=== PATIENT | female | born 1975 ===

== ENCOUNTER 2021-12-24 12:38 | Outpatient (NON) | payer OTHER, SELFPAY ==
[2021-12-24 13:01] LABS: Basophils Absolute Auto 0.03 K/mm3 (0.00-0.10); Basophils Percent Auto 0.5 % (0.0-1.0); Eosinophils Absolute Auto 0.12 K/mm3 (0.02-0.50); Eosinophils Percent Auto 1.8 % (1.0-6.0); Hematocrit 37.9 % (35.0-49.0); Hemoglobin 13.2 g/dL (12.0-15.0); Immature Granulocyte Absolute 0.02 K/mm3 (0.00-0.00); Immature Granulocyte Percent A 0.3 % (0.0-0.0); Lymphocytes Absolute Auto 2.05 K/mm3 (1.10-4.50); Lymphocytes Percent Auto 30.9 % (18.0-42.0); Mean Corpuscular HGB Conc 34.8 g/dL (32.0-36.0); Mean Corpuscular Hemoglobin 32.4 pg (27.0-31.0); Mean Corpuscular Volume 92.9 fL (78.0-102.0); Mean Platelet Volume 11.5 fl (9.2-11.8); Monocytes Absolute Auto 0.53 K/mm3 (0.10-0.90); Neutrophils Absolute Auto 3.9 K/mm3 (1.7-7.2); Neutrophils Percent Auto 58.5 % (50.0-70.0); Platelet Count Result 175 K/mm3 (150-420); Red Blood Count 4.08 M/mm3 (4.20-5.40); Red Cell Distribution Width 12.5 % (11.6-14.4); White Blood Count 6.6 K/mm3 (4.8-10.8)
[2021-12-24 13:13] LABS: Anion Gap 9 mmol/L (8-16); Blood Urea Nitrogen 5 mg/dL (7-18); Calcium 8.5 mg/dL (8.5-10.1); Carbon Dioxide 28 mmol/L (21-32); Chloride 96 mmol/L (98-108); Estimated Glomerular Filt Rate > 60; Glucose 92 mg/dL (70-99); Osmolality Calculated 273 mOsm/kg (285-295); Potassium 3.4 mmol/L (3.5-5.1); Sodium 133 mmol/L (136-145)
[2021-12-24 14:01] LABS: Erythrocyte Sedimentation Rate 13 mm/hr (0-15)
== END 2021-12-24 12:39 | disposition home or self-care (01) ==
LOC: CHSLAB 12:46
PROVIDERS: Visit Provider Internal Medicine
DX: L03.031 Cellulitis of right toe (principal); Z79.2 Long term (current) use of antibiotics
CPT/HCPCS: 80048; 85025; 85652

== ENCOUNTER 2021-12-28 10:58 | Outpatient (NON) | payer OTHER, SELFPAY ==
[2021-12-28 11:55] LABS: Basophils Absolute Auto 0.03 K/mm3 (0.00-0.10); Basophils Percent Auto 0.5 % (0.0-1.0); Eosinophils Percent Auto 1.7 % (1.0-6.0); Hemoglobin 11.9 g/dL (12.0-15.0); Immature Granulocyte Absolute 0.01 K/mm3 (0.00-0.00); Immature Granulocyte Percent A 0.2 % (0.0-0.0); Lymphocytes Absolute Auto 2.26 K/mm3 (1.10-4.50); Lymphocytes Percent Auto 38.1 % (18.0-42.0); Mean Corpuscular HGB Conc 33.1 g/dL (32.0-36.0); Mean Corpuscular Hemoglobin 31.3 pg (27.0-31.0); Mean Corpuscular Volume 94.7 fL (78.0-102.0); Mean Platelet Volume 11.4 fl (9.2-11.8); Monocytes Absolute Auto 0.42 K/mm3 (0.10-0.90); Monocytes Percent Auto 7.1 % (2.0-11.0); Neutrophils Absolute Auto 3.1 K/mm3 (1.7-7.2); Neutrophils Percent Auto 52.4 % (50.0-70.0); Platelet Count Result 187 K/mm3 (150-420); Red Cell Distribution Width 12.6 % (11.6-14.4); White Blood Count 5.9 K/mm3 (4.8-10.8)
[2021-12-28 12:02] LABS: Anion Gap 9 mmol/L (8-16); Blood Urea Nitrogen 3 mg/dL (7-18); Calcium 8.2 mg/dL (8.5-10.1); Carbon Dioxide 28 mmol/L (21-32); Chloride 104 mmol/L (98-108); Estimated Glomerular Filt Rate > 60; Glucose 92 mg/dL (70-99); Osmolality Calculated 288 mOsm/kg (285-295); Potassium 3.8 mmol/L (3.5-5.1); Sodium 141 mmol/L (136-145)
[2021-12-28 12:58] LABS: Erythrocyte Sedimentation Rate 18 mm/hr (0-15)
== END 2021-12-28 10:59 | disposition home or self-care (01) ==
LOC: CHSLAB 11:01
PROVIDERS: Visit Provider Internal Medicine Infectious Disease
DX: L03.031 Cellulitis of right toe (principal); M86.9 Osteomyelitis, unspecified; Z79.2 Long term (current) use of antibiotics
CPT/HCPCS: 80048; 85025; 85652

== ENCOUNTER 2022-01-04 14:02 | Outpatient (NON) | payer OTHER, SELFPAY ==
[2022-01-04 14:18] LABS: Basophils Absolute Auto 0.03 K/mm3 (0.00-0.10); Basophils Percent Auto 0.5 % (0.0-1.0); Eosinophils Absolute Auto 0.19 K/mm3 (0.02-0.50); Hematocrit 37.5 % (35.0-49.0); Hemoglobin 12.3 g/dL (12.0-15.0); Immature Granulocyte Absolute 0.01 K/mm3 (0.00-0.00); Immature Granulocyte Percent A 0.2 % (0.0-0.0); Lymphocytes Absolute Auto 2.09 K/mm3 (1.10-4.50); Lymphocytes Percent Auto 33.5 % (18.0-42.0); Mean Corpuscular HGB Conc 32.8 g/dL (32.0-36.0); Mean Corpuscular Hemoglobin 31.1 pg (27.0-31.0); Mean Corpuscular Volume 94.7 fL (78.0-102.0); Mean Platelet Volume 10.8 fl (9.2-11.8); Monocytes Absolute Auto 0.41 K/mm3 (0.10-0.90); Monocytes Percent Auto 6.6 % (2.0-11.0); Neutrophils Absolute Auto 3.5 K/mm3 (1.7-7.2); Neutrophils Percent Auto 56.2 % (50.0-70.0); Platelet Count Result 219 K/mm3 (150-420); Red Blood Count 3.96 M/mm3 (4.20-5.40); Red Cell Distribution Width 12.3 % (11.6-14.4); White Blood Count 6.2 K/mm3 (4.8-10.8)
[2022-01-04 14:30] LABS: Anion Gap 9 mmol/L (8-16); Blood Urea Nitrogen 3 mg/dL (7-18); Calcium 8.4 mg/dL (8.5-10.1); Carbon Dioxide 28 mmol/L (21-32); Chloride 102 mmol/L (98-108); Estimated Glomerular Filt Rate > 60; Glucose 138 mg/dL (70-99); Osmolality Calculated 286 mOsm/kg (285-295); Sodium 139 mmol/L (136-145)
[2022-01-04 15:24] LABS: Erythrocyte Sedimentation Rate 17 mm/hr (0-15)
== END 2022-01-04 14:03 | disposition home or self-care (01) ==
LOC: CHSLAB 14:04
PROVIDERS: Visit Provider Internal Medicine
DX: L03.90 Cellulitis, unspecified (principal); M86.8X7 Other osteomyelitis, ankle and foot; Z79.2 Long term (current) use of antibiotics
CPT/HCPCS: 80048; 85025; 85652

== ENCOUNTER 2022-01-10 10:12 | Outpatient (NON) | payer OTHER, SELFPAY ==
[2022-01-10 11:34] LABS: Basophils Absolute Auto 0.04 K/mm3 (0.00-0.10); Basophils Percent Auto 0.7 % (0.0-1.0); Eosinophils Absolute Auto 0.14 K/mm3 (0.02-0.50); Eosinophils Percent Auto 2.3 % (1.0-6.0); Hematocrit 37.1 % (35.0-49.0); Hemoglobin 12.4 g/dL (12.0-15.0); Immature Granulocyte Absolute 0.02 K/mm3 (0.00-0.00); Immature Granulocyte Percent A 0.3 % (0.0-0.0); Lymphocytes Percent Auto 31.9 % (18.0-42.0); Mean Corpuscular HGB Conc 33.4 g/dL (32.0-36.0); Mean Corpuscular Hemoglobin 31.6 pg (27.0-31.0); Mean Corpuscular Volume 94.4 fL (78.0-102.0); Mean Platelet Volume 11.5 fl (9.2-11.8); Monocytes Absolute Auto 0.37 K/mm3 (0.10-0.90); Monocytes Percent Auto 6.2 % (2.0-11.0); Neutrophils Absolute Auto 3.5 K/mm3 (1.7-7.2); Neutrophils Percent Auto 58.6 % (50.0-70.0); Platelet Count Result 207 K/mm3 (150-420); Red Blood Count 3.93 M/mm3 (4.20-5.40); Red Cell Distribution Width 12.5 % (11.6-14.4)
[2022-01-10 11:42] LABS: Anion Gap 5 mmol/L (8-16); Blood Urea Nitrogen 6 mg/dL (7-18); Calcium 8.3 mg/dL (8.5-10.1); Carbon Dioxide 31 mmol/L (21-32); Chloride 106 mmol/L (98-108); Estimated Glomerular Filt Rate > 60; Glucose 93 mg/dL (70-99); Osmolality Calculated 291 mOsm/kg (285-295); Potassium 3.4 mmol/L (3.5-5.1); Sodium 142 mmol/L (136-145)
[2022-01-10 12:37] LABS: Erythrocyte Sedimentation Rate 19 mm/hr (0-15)
== END 2022-01-10 10:13 | disposition home or self-care (01) ==
LOC: CHSLAB 10:14
PROVIDERS: PCP Internal Medicine; Visit Provider Internal Medicine Infectious Disease
DX: L03.90 Cellulitis, unspecified (principal); M86.9 Osteomyelitis, unspecified; Z79.2 Long term (current) use of antibiotics
CPT/HCPCS: 36415; 80048; 85025; 85652